=== PATIENT | male | born 1940 | race Caucasian/White ===

== ENCOUNTER 2016-08-03 15:03 | Emergency (ER) | payer MEDICARE, OTHER ==
[~2016-08-03] VITALS: Ht 175.3 cm; Wt 111.4 kg
[2016-08-03] MEDS ORDERED: ASPIRIN 81 MG CHEW (CHILDREN'S ASA) ONE (15:36)
[2016-08-03] MEDS ORDERED: NITROGLYCERIN SUBLINGUAL 0.4 MG (NITROQUICK) TABLET SL ONE (15:37)
[2016-08-03] MEDS ORDERED: SODIUM CHLORIDE FLUSH 3 ML SYR IV PRN (16:40)
[2016-08-03] MEDS ORDERED: SODIUM CHLORIDE FLUSH 10 ML SYR IV PRN (16:40)
--- NOTE | 2016-08-03 17:55 | NUR ---
PT IS BEING DISCHARGED WITHOUT LAB OR IV FLUIDS BEING COMPLETED D/T PT BEING STUCK FOR IV AND BLOOD DRAWS NUMEROUS TIMES WITHOUT SUCCESS.
[2016-08-03 17:59] VITALS: BP 136/66
== END 2016-08-03 17:55 | disposition home or self-care (01) ==
LOC: ED 15:04
DX: R07.9 Chest pain, unspecified (principal)
CPT/HCPCS: 71010; 93005; 99283; A9270; 93010; 99284